=== PATIENT | male | born 2000 | race Caucasian/White ===

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

== ENCOUNTER → 2021-11-28 10:19 | Outpatient (CLI) | payer OTHER, SELFPAY | PROVIDERS: PCP Family Medicine; Visit Provider Nurse Practitioner | DX: U07.1 COVID-19 (principal) | CPT/HCPCS: C9803; U0003; U0005 ==

== ENCOUNTER 2022-06-12 15:29 | Emergency (ER) | payer SELFPAY ==
[2022-06-12 15:47] VITALS: BP 148/87; PULSE 80; RESP 17; TEMP 37.3; O2SAT 96; BMI 27.1
--- NOTE | 2022-06-12 15:52 | HMH.EDUTC ---
[facility] [place]: Epistaxis Disposition: Home, Self-Care Condition on Discharge: Good Instructions: Nosebleed, DI for Nosebleed Additional Instructions: Drink plenty of fluids. Take tylenol or ibuprofen for pain or fever. Take the medications as directed. Follow up with your regular doctor. GO TO THE ER FOR ANY WORSENING SYMPTOMS Prescriptions: Amoxicillin [Amoxicillin 875MG Tab] 875 mg PO Q12H #20 tab [facility] methylPREDNISolone [Medrol] 4 mg PO DIRECTED 6 Days #21 packet Transmission Status: [facility] Sodium Chloride [Saline Nasal [place]] 1 spray NS QID #90 ml Transmission Status: [facility] Cetirizine HCl [Zyrtec] 10 mg PO DAILY 30 Days #30 cap Transmission Status: [facility] Referrals: Cristiane Pérez APRN [Primary Care Provider] - Jeniffer Peters MD [Consulting Physician] - Medical Decision Making - Medical Records Medical records reviewed: No: I reviewed the patient's medical records. - Maurice Inquiry Pt receiving controlled substance: No Vital Signs: 06/12/22 15:47 06/12/22 16:27 Temperature 99.2 F 98.9 F Temperature Source Oral Oral Pulse Rate 82 Pulse Rate [Left Radial] 80 Respiratory Rate 17 16 Blood Pressure 133/74 Blood Pressure [Right Arm] 148/87 H Blood Pressure Mean [Right Arm] 107 02 Sat by Pulse Oximetry 96 Oxygen Delivery Method Room Air Room Air [facility] [place] - General Stated complaint: nosebleed Time Seen by Provider: 06/12/22 15:55 Mode of Arrival: Ambulatory Source of Information: Patient Limitations: No Limitations Description of Symptoms (Recalled from Triage Doc. by RN): pt to [facility] c/o nosebleeds. pt states he has had 3 nosebleeds in the past 12 hours. pt states he was covid+ in november and has since has nosebleeds. HEENT Symptoms (Recalled from RN notes): Yes Resp Symptoms (Recalled from RN notes): No Skin Symptoms (Recalled from RN notes): No MS Symptoms (Recalled from RN notes): No Functional Status (Recalled from RN notes): na - History of Present Illness Provider Complaint: He states that over the past several months he has been getting nose bleeds fairly frequently. He denies any injury to his nose or face. - Related Data Home Medications Medication Instructions Recorded Confirmed cetirizine 10 mg tablet 10 mg PO DAILY PRN 09/28/21 09/28/21 Previous Rx's Medication Instructions Recorded amoxicillin 500 mg capsule 500 mg PO Q12H 10 Days #20 cap 09/28/21 Amoxicillin [Amoxicillin 875MG 875 mg PO Q12H #20 tab 06/12/22 Tab] Cetirizine HCl [Zyrtec] 10 mg PO DAILY 30 Days #30 cap 06/12/22 Sodium Chloride [Saline Nasal 1 spray NS QID #90 ml 06/12/22 [place]] methylPREDNISolone [Medrol] 4 mg PO DIRECTED 6 Days #21 06/12/22 packet Allergies Allergy/AdvReac Type Severity Reaction Status Date / Time cefaclor [From Ceclor] Allergy Verified 09/28/21 15:11 erythromycin base Allergy rash Verified 09/28/21 15:11 - Worker's Comp Is this a Worker's Comp case?: No [facility] History - Hepatitis A Screen Attestation statement:: This patient has been screened for Hepatitis A risk factors. I have reviewed the patient's past medical history: Yes Medical History: Denies:: Cancer, Diabetes Mellitus Type 1, Diabetes Mellitus Type 2, MRSA Comment: allergies Laterality Cases: Bilateral: Myringotomy (Ear Tubes), Other Amputation: No Fractures: Yes Comment: right arm fracture and repair - Social History Smoking Status: Never smoker Alcohol Intake: never Occupational Status: employed Family Hx:: Non-contributory ROS Obtained: Yes All systems reviewed & no additional complaints - Constitutional Constitutional: Denies chills, Denies fever(s) - Eyes Eyes: Denies eye discharge - ENT Ears, Nose, Mouth, and Throat: Reports as per HPI - Cardiovascular Cardiovascular: Denies chest pa
[2022-06-12 16:27] VITALS: BP 133/74; PULSE 82; RESP 16; TEMP 37.2; O2SAT 100
== END 2022-06-12 16:29 | disposition home or self-care (01) ==
PROVIDERS: Emergency Provider Nurse Practitioner Family; PCP Nurse Practitioner Family
DX: R04.0 Epistaxis (principal)
CPT/HCPCS: 99212; G0463

== ENCOUNTER 2023-08-25 22:35 | Emergency (ER) | payer SELFPAY ==
[2023-08-25 22:36] VITALS: BP 153/97; PULSE 93; RESP 19; TEMP 36.7; O2SAT 96; BMI 26.4
--- NOTE | 2023-08-25 23:04 | HMH.EDGENADL ---
Discharge Plan Disposition Patient Disposition: Home, Self-Care Condition: Good Prescriptions Prescriptions: No Action cetirizine 10 mg tablet 10 mg PO DAILY PRN amoxicillin 500 mg capsule 500 mg PO Q12H 10 Days Qty: 20 0RF Rx Instructions: pt states he tolerates amoxicillin in spite of his medication allergies to ceclor and emycin amoxicillin 875 MG tablet 875 mg PO Q12H Qty: 20 0RF methylprednisolone 4 MG tablets,dose pack 4 mg PO DIRECTED 6 Days Qty: 21 0RF sodium chloride 30 ML aerosol,spray 1 spray NS QID Qty: 90 0RF cetirizine 10 MG capsule 10 mg PO DAILY 30 Days Qty: 30 5RF Referrals Follow up/Referrals: Provider,Referral, MD [Primary Care Provider] - See instructions Activity Restrictions/Add. Instructions Additional Instructions/Restrictions: Please follow-up with your primary care provider. Please return to the emergency department if you develop any new or worsening symptoms or become concerned for your health. Clinical Impressions Clinical Impression: Acute anterior epistaxis Instructions Patient Instructions: DI for Nosebleed Discharge ED Provider: Linette Lee General Adult HPI General Chief complaint: Epistaxis Stated complaint: nose bleed Time Seen by Provider: 08/25/23 23:00 Mode of Arrival: Ambulatory Source of Information: Patient Limitations: No Limitations Description of Symptoms (Recalled from ER Triage Doc. by RN): 23 M presents with a resolved nose bleed which has been happening since 1500 this date on and off. Patient states he's been congested over the last few days. He adds that after having COVID-19 he had these episodes of nose bleeds. History of Present Illness HPI narrative: 23-year-old male presents with intermittent epistaxis since approximately 3 PM today. He reports that he has had a cold recently. He had issues with nosebleeds last year for a few days but they resolved. He denies any other significant bleeding such as bleeding from the gums, joints, easy bruising etc. The nose is currently not bleeding. He reports the bleeding comes primarily from the left nostril. Related Data Home Medications Medication Instructions Recorded Confirmed cetirizine 10 mg tablet 10 mg PO DAILY PRN 09/28/21 09/28/21 Previous Rx's Medication Instructions Recorded amoxicillin 500 mg capsule 500 mg PO Q12H otitis media 10 09/28/21 days #20 caps amoxicillin 875 mg tablet 875 mg PO Q12H #20 tabs 06/12/22 cetirizine 10 mg capsule 10 mg PO DAILY 30 days #30 caps 06/12/22 methylprednisolone 4 mg tablets in 4 mg PO DIRECTED 6 days #21 06/12/22 a dose pack packets sodium chloride 0.65 % nasal spray 1 spray intranasal QID #90 mL 06/12/22 aerosol Allergies Allergy/AdvReac Type Severity Reaction Status Date / Time cefaclor [From [facility]] Allergy Verified 09/28/21 15:11 erythromycin base Allergy rash Verified 09/28/21 15:11 [facility] [place] Disclaimer: The information contained in this section may have been updated after the patient was seen, as this information can be updated by other users. Social History Smoking Status: Never smoker alcohol intake: never current occupational status: employed Travel in the last 8 weeks: None ROS Obtained: Yes All systems reviewed & no additional complaints except as documented Physical Exam General General appearance: alert and in no apparent distress Head Head exam: atraumatic and normocephalic Eye Eye exam: Present normal appearance, PERRL and EOMI ENT ENT exam: Present normal oropharynx, normal external ear exam and other (Dried blood noted in the left nare) Neck Neck exam: Present normal inspection and full ROM Chest Chest inspection: Present normal inspection and symmetric chest wall rise; Absent tenderness Respiratory Respiratory exam: Present normal lung sounds bilaterally; Absent respiratory distress Cardiovascular Cardiovascular exam: Present regular rate and normal
[2023-08-25 23:08] VITALS: BP 143/87; PULSE 73; RESP 19; TEMP 36.8; O2SAT 98
== END 2023-08-25 23:08 | disposition home or self-care (01) ==
PROVIDERS: Emergency Provider Emergency Medicine
DX: R04.0 Epistaxis (principal)
CPT/HCPCS: 99282